=== PATIENT | female | born 1940 | race Caucasian/White ===

== ENCOUNTER 2024-09-05 15:16 | Inpatient (IN) | payer MEDICARE, BC ==
[~2024-09-05] VITALS: Ht 152.4 cm; Wt 57.2 kg
[2024-09-05 16:37] LABS: BASOPHILS % 0.7 % (0.0-2.0); EOSINOPHILS % 0.5 % (0.0-5.0); HEMATOCRIT. 46.9 % (36.0-48.0); HEMOGLOBIN. 16.2 g/dL (12.0-16.0); LYMPHOCYTES % 9.3 % (20.0-50.0); MEAN CORPUSCULAR HEMOGLOBIN 29.4 pg (28.0-32.0); MEAN CORPUSCULAR HGB CONC 34.5 g/dL (31.0-37.0); MEAN CORPUSCULAR VOLUME 85.4 fL (81.0-99.0); MEAN PLATELET VOLUME 8.3 fl (7.4-10.4); MONOCYTES % 6.5 % (2.0-8.0); PLATELET 228 x1000/uL (130-400); RED BLOOD CELL COUNT 5.49 mill/uL (4.2-5.4); RED CELL DISTRIBUTION WIDTH 13.7 % (11.6-14.6)
[2024-09-05 16:40] LABS: CHLORIDE 105 mEq/L (98-107); POTASSIUM 3.6 mEq/L (3.5-5.1); SODIUM 141 mEq/L (136-145)
[2024-09-05 16:41] LABS: CARBON DIOXIDE 25 mEq/L (21-32)
[2024-09-05 16:42] LABS: CALCIUM 10.4 mg/dL (8.7-10.4)
[2024-09-05 16:46] LABS: CREATININE 1.2 mg/dL (0.6-1.0); GLUCOSE 93 mg/dL (70-105)
[2024-09-05 16:47] LABS: UREA NITROGEN BLOOD 18 mg/dL (9-23)
[2024-09-05 16:48] LABS: TROPONIN I HIGH SENSITIVITY 5 ng/L (3.0-34)
[2024-09-05] MEDS: ASPIRIN 325MG TABLET PO ONE (18:25)
[2024-09-05 20:00] LABS: TROPONIN I HIGH SENSITIVITY 7 ng/L (3.0-34)
[2024-09-05 20:47] LABS: INR 1.1; PROTHROMBIN TIME 11.3 sec (9.6-11.0)
[2024-09-05 20:57] LABS: CLARITY URINE CLEAR (CLEAR); COLOR URINE YELLOW (YELLOW); GLUCOSE URINE NEGATIVE (NEGATIVE); KETONES URINE 1+ (NEGATIVE); LEUKOCYTE ESTERASE URINE NEGATIVE (NEGATIVE); NITRITE URINE NEGATIVE (NEGATIVE); OCCULT BLOOD URINE NEGATIVE (NEGATIVE); PH URINE 7.5 (4.5-8.0); PROTEIN URINE NEGATIVE (NEGATIVE); SPECIFIC GRAVITY URINE 1.009 (1.005-1.030); UROBILINOGEN URINE 0.2 E.U./dL (0.2-1.0)
[2024-09-05 22:20] VITALS: BP 134/70; PULSE 66; RESP 18; TEMP 36.6
[2024-09-05] MEDS ORDERED: FAMOTIDINE 20MG TABLET PO PRN (23:45)
[2024-09-06] MEDS: FAMOTIDINE 20MG TABLET PO PRN (00:23)
[2024-09-06 04:00] VITALS: BP 134/70; PULSE 66; RESP 18; TEMP 36.6; O2SAT 98
[2024-09-06] MEDS: LEVOTHYROXINE SODIUM 75MCG TABLET PO SCH (06:52)
[2024-09-06 08:00] VITALS: BP 131/71; PULSE 58; RESP 18; TEMP 36.6; O2SAT 97
[2024-09-06] MEDS: AMLODIPINE 5MG TABLET PO SCH (10:12)
[2024-09-06 12:00] VITALS: BP 135/72; PULSE 63; RESP 18; TEMP 36.8; O2SAT 95
[2024-09-06 16:00] VITALS: BP 133/58; PULSE 66; RESP 18; TEMP 36.9; O2SAT 96
[2024-09-06] MEDS: RIVAROXABAN 20 MG TABLET PO SCH (18:23)
[2024-09-06 20:00] VITALS: BP 117/53; PULSE 58; RESP 17; TEMP 36.6; O2SAT 97
[2024-09-06] MEDS: ATORVASTATIN CALCIUM 40MG TABLET PO SCH (21:00)
[2024-09-07] VITALS: BP 119/76; PULSE 50; RESP 18; TEMP 36.5; O2SAT 96
[2024-09-07 04:00] VITALS: BP 122/55; PULSE 52; RESP 18; TEMP 36.4; O2SAT 96
[2024-09-07 08:00] VITALS: BP 136/59; PULSE 47; RESP 18; TEMP 36.4; O2SAT 97
[2024-09-07] MEDS: POLYETHYLENE GLYCOL 3350 (17GM) 1 DOSE PACK PO SCH (09:34)
[2024-09-07 12:00] VITALS: BP 131/68; PULSE 61; RESP 20; TEMP 36.3; O2SAT 98
[2024-09-07 16:00] VITALS: BP 125/54; PULSE 58; RESP 18; TEMP 36.4; O2SAT 99
[2024-09-07 17:51] LABS: BASOPHILS % 2.1 % (0.0-2.0); EOSINOPHILS % 2.7 % (0.0-5.0); HEMATOCRIT. 43.1 % (36.0-48.0); HEMOGLOBIN. 14.6 g/dL (12.0-16.0); LYMPHOCYTES % 21.4 % (20.0-50.0); MEAN CORPUSCULAR HEMOGLOBIN 29.2 pg (28.0-32.0); MEAN CORPUSCULAR HGB CONC 33.9 g/dL (31.0-37.0); MEAN CORPUSCULAR VOLUME 86.3 fL (81.0-99.0); MEAN PLATELET VOLUME 8.6 fl (7.4-10.4); MONOCYTES % 10.3 % (2.0-8.0); NEUTROPHILS % 63.5 % (40.0-76.0); PLATELET 207 x1000/uL (130-400); RED CELL DISTRIBUTION WIDTH 13.9 % (11.6-14.6); WHITE BLOOD COUNT 5.2 x1000/uL (4.5-11.0)
[2024-09-07 17:58] LABS: CARBON DIOXIDE 29 mEq/L (21-32); CHLORIDE 105 mEq/L (98-107); POTASSIUM 4.3 mEq/L (3.5-5.1); SODIUM 142 mEq/L (136-145)
[2024-09-07 17:59] LABS: CALCIUM 9.8 mg/dL (8.7-10.4)
[2024-09-07 18:04] LABS: CREATININE 0.8 mg/dL (0.6-1.0); GLUCOSE 101 mg/dL (70-105); UREA NITROGEN BLOOD 21 mg/dL (9-23)
[2024-09-07 20:00] VITALS: BP 107/50; PULSE 53; RESP 18; TEMP 36.4; O2SAT 98
[2024-09-07] MEDS ORDERED: HYDROCODONE/ACETAMINOPHEN 5/325MG TABLET PO PRN (20:15)
[2024-09-08] VITALS: BP 122/52; PULSE 52; RESP 18; TEMP 37; O2SAT 97
[2024-09-08 04:00] VITALS: BP 124/52; PULSE 53; RESP 19; TEMP 36.6; O2SAT 97
[2024-09-08 07:24] LABS: BASOPHILS % 1.3 % (0.0-2.0); EOSINOPHILS % 2.6 % (0.0-5.0); HEMATOCRIT. 42.4 % (36.0-48.0); HEMOGLOBIN. 14.5 g/dL (12.0-16.0); LYMPHOCYTES % 20.3 % (20.0-50.0); MEAN CORPUSCULAR HEMOGLOBIN 29.1 pg (28.0-32.0); MEAN CORPUSCULAR HGB CONC 34.3 g/dL (31.0-37.0); MEAN PLATELET VOLUME 8.4 fl (7.4-10.4); MONOCYTES % 9.9 % (2.0-8.0); NEUTROPHILS % 65.9 % (40.0-76.0); PLATELET 194 x1000/uL (130-400); RED BLOOD CELL COUNT 4.98 mill/uL (4.2-5.4); RED CELL DISTRIBUTION WIDTH 13.7 % (11.6-14.6); WHITE BLOOD COUNT 5.1 x1000/uL (4.5-11.0)
[2024-09-08 07:30] LABS: CALCIUM 9.4 mg/dL (8.7-10.4); CARBON DIOXIDE 25 mEq/L (21-32); CHLORIDE 106 mEq/L (98-107); POTASSIUM 3.9 mEq/L (3.5-5.1); SODIUM 142 mEq/L (136-145)
[2024-09-08 07:36] LABS: CREATININE 0.8 mg/dL (0.6-1.0); GLUCOSE 95 mg/dL (70-105); UREA NITROGEN BLOOD 17 mg/dL (9-23)
[2024-09-08 08:00] VITALS: BP 137/60; PULSE 59; RESP 16; TEMP 35.9; O2SAT 97
[2024-09-08 12:00] VITALS: BP 136/73; PULSE 66; RESP 18; TEMP 36.4; O2SAT 99
[2024-09-08 16:00] VITALS: BP 133/73; PULSE 61; RESP 16; TEMP 36.5; O2SAT 97
[2024-09-08 20:00] VITALS: BP 127/61; PULSE 66; RESP 17; TEMP 36.6; O2SAT 97
[2024-09-09] VITALS (7 sets, daily range): BP systolic 108–148; BP diastolic 55–73; PULSE 58–76; RESP 16–20; TEMP 36.1–37.2; O2SAT 95–99
[2024-09-09 06:28] LABS: POTASSIUM 3.8 mEq/L (3.5-5.1)
[2024-09-09 06:29] LABS: CALCIUM 10.1 mg/dL (8.7-10.4)
[2024-09-09 06:33] LABS: BASOPHILS % 1.6 % (0.0-2.0); EOSINOPHILS % 2.6 % (0.0-5.0); HEMATOCRIT. 44.5 % (36.0-48.0); HEMOGLOBIN. 15.2 g/dL (12.0-16.0); LYMPHOCYTES % 27.8 % (20.0-50.0); MEAN CORPUSCULAR HEMOGLOBIN 29.2 pg (28.0-32.0); MEAN CORPUSCULAR HGB CONC 34.1 g/dL (31.0-37.0); MEAN CORPUSCULAR VOLUME 85.5 fL (81.0-99.0); MEAN PLATELET VOLUME 8.6 fl (7.4-10.4); MONOCYTES % 10.5 % (2.0-8.0); NEUTROPHILS % 57.5 % (40.0-76.0); PLATELET 217 x1000/uL (130-400); RED BLOOD CELL COUNT 5.21 mill/uL (4.2-5.4); WHITE BLOOD COUNT 4.9 x1000/uL (4.5-11.0)
[2024-09-09 06:34] LABS: CREATININE 0.9 mg/dL (0.6-1.0)
== END 2024-09-09 20:25 | disposition home or self-care (01) | DRG 52 ==
LOC: ER 15:16 → EDBEDREQ 18:37 → EDBEDREQTM 21:31 → EDBEDREQ 21:31 → ENRESERV 21:40 → 5WST 22:09 → 7EST 09-09 13:13
PROVIDERS: ADMIT Internal Medicine; ATTEND Internal Medicine
DX: G93.40 Encephalopathy, unspecified (principal); G45.9 Transient cerebral ischemic attack, unspecified; T18.128A Food in esophagus causing other injury, initial encounter; R13.10 Dysphagia, unspecified; I10 Essential (primary) hypertension; E03.9 Hypothyroidism, unspecified; Z92.21 Personal history of antineoplastic chemotherapy; Z88.0 Allergy status to penicillin; Z85.9 Personal history of malignant neoplasm, unspecified; W44.F3XA Food entering into or through a natural orifice, initial encounter; Y99.8 Other external cause status; Y93.89 Activity, other specified; Y92.89 Other specified places as the place of occurrence of the external cause
CPT/HCPCS: 36415; 70551; 71045; 80048; 81003; 84484; 85025; 93005; 97161; 99285; A4606